=== PATIENT | female | born 1970 | race Caucasian/White ===

== ENCOUNTER 2016-07-01 23:24 | Emergency (ER) | payer MEDICARE ==
[~2016-07-01] VITALS: Ht 170.2 cm; Wt 89.7 kg
[~2016-07-01 23:24] MED LIST: ALBU0.832 INH; BECL8.7A5 AEROSOL; BUDE10.22 PO; FERR325T40 PO; GLIM2TAB3 PO; NITR0.4T SL; OMEP-29 PO; PROM25TA7 PO; TRAZ-58 PO; VYBRID PO
[2016-07-01 23:29] VITALS: Ht 170.2 cm; Wt 89.7 kg
--- OUTSIDE RECORDS SUMMARY | 2016-07-01 23:29 | XMS REPORT | Referral Summary ---
Author Author [facility] Organization [facility] Address Unknown Phone Unavailable Care Team Providers Care Skin Carver Name Role Phone CathyeugeniaAgatha Primary Care Physician [phone] Encounter BOB [id number] Date(s): 02/01/15 - 02/02/15 [facility] [address] [place] [address] [phone] Final: Other chest pain Final: Iron deficiency anemia, unspecified Final: Abnormal electrocardiogram [ECG] [EKG] Final: Type 2 diabetes mellitus without complications Final: Bradycardia, unspecified Final: Obesity, unspecified Final: Bipolar disorder, unspecified Final: Presence of cardiac pacemaker Final: Body mass index (BMI) 32.0-32.9, adult Discharge Disposition: 01-Home or Self Care Attending Physician: Ramana Ocampo MD Admitting Physician: Ramana Ocampo MD Vital Signs Most recent to 1 oldest [Reference Range]: Temperature Oral 37.1 degC [35.8-37.3 degC] (02/02/15 10:30 PM) Peripheral Pulse 75 bpm Rate [60-100 bpm] (02/02/15 10:30 PM) Heart Rate Monitored 65 bpm [60-100 bpm] (02/02/15 7:30 PM) Respiratory Rate 18 br/min [14-20 br/min] (02/02/15 10:30 PM) Blood Pressure 140/85 mmHg [90-140/60-90 mmHg] (02/02/15 10:30 PM) Mean Arterial 103 mmHg Pressure, Cuff (02/01/15 10:21 PM) SpO2 95 % (02/02/15 10:30 PM) Problem List Condition Effective Dates Status Health Status Informant Acute Active pain(Confirmed) Pacemaker(Confirmed) Active Obesity(Confirmed) Active patient Tissue perfusion Active alteration(Confirmed )1 1Problem added automatically by system based on initiation of Tissue Perfusion Cerebral Plan of Care Allergies, Adverse Reactions, Alerts Substance Reaction Severity Status metFORMIN Diarrhea Active minocycline Eczema (rash) Active Medications Amaryl 2 mg, Oral, Daily, 0 Refill(s) Start Date: 02/01/15 Status: Ordered ferrous sulfate 325 mg (65 mg elemental iron) oral delayed release tablet 325 mg 1 tabs, Oral, BIDWM, 0 Refill(s) Start Date: 02/02/15 Status: Ordered Nitrostat 0.4 mg, SubLingual, q5min, as needed for chest pain, not to exceed 3 doses/15 min--if pain persists, seek medical attention, 0 Refill(s) Start Date: 02/01/15 Status: Ordered PriLOSEC 20 mg oral delayed release capsule 20 mg 1 caps, Oral, Daily, # 90 caps, 0 Refill(s), other reason (Rx) Start Date: 02/02/15 Status: Ordered traZODone 100 mg, Oral, Bedtime (once a day), 0 Refill(s) Start Date: 02/01/15 Status: Ordered Viibryd 40 mg, Oral, Daily, 0 Refill(s) Start Date: 02/01/15 Status: Ordered Results Hematology Most recent to 1 oldest [Reference Range]: WBC [4.8-10.8 7.4 10*3/uL 10*3/uL] (02/01/15 8:14 PM) RBC [4.00-5.20] 4.43 (02/01/15 8:14 PM) Hgb [12.0-16.0 11.2 gm/dL gm/dL] *LOW* (02/01/15 8:14 PM) Hct [37.0-47.0 %] 34.8 % *LOW* (02/01/15 8:14 PM) MCV [82.0-99.0 fL] 78.6 fL *LOW* (02/01/15 8:14 PM) MCH [27.0-32.0 pg] 25.3 pg *LOW* (02/01/15 8:14 PM) MCHC [32.0-36.0 32.2 gm/dL gm/dL] (02/01/15 8:14 PM) RDW [11.5-14.5 %] 14.9 % *HI* (02/01/15 8:14 PM) Platelet [150-400 320 10*3/uL 10*3/uL] (02/01/15 8:14 PM) MPV [9.4-12.4 fL] 10.4 fL (02/01/15 8:14 PM) Immature 0.1 % Granulocytes (02/01/15 8:14 PM) [0.0-1.0 %] Neutrophils [51-75 55 % %] (02/01/15 8:14 PM) Lymphocytes [20-46 36 % %] (02/01/15 8:14 PM) Monocytes [4-11 %] 7 % (02/01/15 8:14 PM) Eosinophils [0-4 %] 2 % (02/01/15: PM) Basophils [0-2 %] 0 % (02/01/15 8: PM) Neutro Absolute 4.07 10*3 [1.90-7.00 10*3] (02/01/15 8:14 PM) Lymph Absolute 2.67 10*3 [0.80-3.30 10*3] (02/01/15 8:14 PM) Ness Absolute 0.49 10*3 [0.30-1.00 10*3] (02/01/15 8:14 PM) Eos Absolute 0.16 10*3 [0.00-0.50 10*3] (02/01/15 8:14 PM) Baso Absolute 0.03 10*3 [0.00-0.20 10*3] (02/01/15 8:14 PM) Chemistry Most recent to 1 oldest [Reference Range]: Sodium Lvl [136-144 137 mEq/L mEq/L] (02/01/15 8:14 PM) Potassium Lvl 3.6 mEq/L [3.6-5.1 mEq/L] (02/01/15 8:14 PM) Chloride [99-109 103 mEq/L mEq/L] (02/01/15 8:14 PM) CO2 [22-32 mEq/L] 25 mEq/L (02/01/15 8:14 PM) AGAP [3-20] 9 (02/01/15 8:14 PM) BUN [4-20 mg/dL] 9 mg/dL (02/01/15 8:14 PM) Glucose Lvl [70-100 116 mg/dL mg/dL] *HI* (02/01/15 8:14 PM) Creatinine Lvl 0.72 mg/dL [0.44-1.03 mg/dL] (02/01/15 8:14 PM) eGFR [>60] >60 1 (02/01/15 8:14 PM) Calcium Lvl 9.3 mg/dL [8.6-10.0 mg/dL] (02/01/15 8:14 PM) Albumin Lvl [3.5-4.8 3.9 gm/dL gm/dL] (02/01/15 8:14 PM) Total Protein 6.5 gm/dL [6.1-7.9 gm/dL] (02/01/15 8:14 PM) Globulin [1.9-4.3 2.6 gm/dL gm/dL] (02/01/15 8:14 PM) ALT [14-54 U/L] 36 U/L (02/01/15 8:14 PM) AST [15-41 U/L] 26 U/L (02/01/15 8:14 PM) Alk Phos [26-104 70 U/L U/L] (02/01/15 8:14 PM) Bili Total [0.2-1.2 0.3 mg/dL 2 mg/dL] (02/01/15 8:14 PM) Troponin [<0.06 <0.05 ng/mL ng/mL] (02/02/15 10:00 PM) Blood Glucose, 84 mg/dL Capillary [70-100 (02/02/15 6:18 PM) mg/dL] 1Result Comment: Multiply eGFR results by 1.21 for race. 2Result Comment: Naproxen, specifically the metabolite O-desmethylnaproxen, may cause spurious elevation in Total Bilirubin levels. Immunizations No data available for this section Procedures Procedure Date Related Diagnosis Body Site Catheterization Left Heart with Coronary 02/02/15 Angiography (Right, Wrist)1 1auto-populated from documented surgical case Social History Social History Type Response Smoking Status Never smoker Assessment and Plan No data available for this section
--- OUTSIDE RECORDS SUMMARY | 2016-07-01 23:29 | XMS REPORT | Continuity of Care Document ---
Author Author [facility] Organization [facility] Address Unknown Phone Unavailable Care Team Providers Care Banquet Supervisor Name Role Phone Darin Rader Primary Care Physician [phone] Source Comments Some departments are not documenting in the electronic medical record. If you do not see the information that you expected, contact Release of Information in the Health Information Management department at [phone] for further assistance in locating additional records.[facility] Active Allergies and Adverse Reactions Allergen Noted Date Severity Reactions Comments Biguanides 08/20/2014 Low UNKNOWN Metformin 08/20/2014 Low UNKNOWN Current Medications Prescription Sig. Disp. Refills Start End Date Status Date promethazine (PHENERGAN) Take 25 mg by mouth every Active 25 mg tablet 6 hours as needed for Nausea. traZODone (DESYREL) 100 Take 100 mg by mouth at Active mg tablet bedtime daily. budesonide/formoterol Inhale 2 Puffs by mouth Active (SYMBICORT) 160/4.5 mcg twice daily. HFAA inhalation nitroglycerin (NITROSTAT) Place 0.4 mg under tongue Active 0.4 mg tablet every 5 minutes as needed for Chest Pain. Mometasone-Formoterol Inhale by mouth. Active (DULERA) 100-5 mcg/actuation HFAA NAPROXEN SODIUM (ALEVE Take 220 mg by mouth as Active PO) Needed. OLANZapine (ZYPREXA) 5 mg Take 5 mg by mouth as Active tablet Needed. Active Problems No known active problems Social History Tobacco Use Types Packs/Day Years Used Date Never Smoker Last Filed Vital Signs Vital Sign Reading Time Taken Blood Pressure 158/96 08/27/2014 1:41 PM CDT Pulse 87 08/27/2014 1:41 PM CDT Temperature 37.3 C (99.1 F) 08/27/2014 1:41 PM CDT Respiratory Rate 18 08/27/2014 1:41 PM CDT Height 1.676 m (5' 5.98") 08/27/2014 1:41 PM CDT Weight 92.352 kg (203 lb 9.6 oz) 08/27/2014 1:41 PM CDT Body Mass Index 32.88 08/27/2014 1:41 PM CDT Oxygen Saturation 98% 08/27/2014 1:41 PM CDT Plan of Care Health Maintenance Due Date Last Done Comments Physical (Comprehensive) 1978 Exam Pertussis Vaccine 1982 Tetanus Vaccine 02/11/1988 Cervical Cancer Screening 02/11/1992 Breast Cancer Screening 2011 Influenza Vaccine 12/08/2016 Results from Last 3 Months Not on file
--- OUTSIDE RECORDS SUMMARY | 2016-07-01 23:29 | XMS REPORT ---
Author [facility] Organization Unknown Address Unknown Phone Unavailable Care Team Providers Care Rag Boiler Name Role Phone UNASSIGNED DOCTOR , DOCTOR PP [phone] Reason For Visit Reason for Visit from 09/26/2014 4:35 AM:* Pt Stated Reason for Adm : Depression with SI with plan Chief Complaint MOD Social History Social History from 09/30/2014 12:16 PM:* Tobacco Use? : Never Smoker Social History from 09/26/2014 4:35 AM:* Tobacco Use? : Never Smoker Functional Status Functional Status from 09/30/2014 9:10 AM:* LOC : Alert * Oriented To : Person,Place,Time,Event * Weight Bearing Status : Full * Assist Level : Independent * # Assists : Independent Functional Status from 09/29/2014 8:20 PM:* LOC : Alert * Oriented To : Person,Place,Time,Event * Weight Bearing Status : Full * Assist Level : Independent * # Assists : Independent Functional Status from 09/29/2014 9:45 AM:* LOC : Alert * Oriented To : Person,Place,Time,Event * Weight Bearing Status : Full * Assist Level : Independent * # Assists : Independent Functional Status from 09/28/2014 7:45 PM:* LOC : Alert * Oriented To : Person,Place,Time,Event * Weight Bearing Status : Full * Assist Level : Independent * # Assists : Independent Functional Status from 09/28/2014 10:00 AM:* LOC : Alert * Oriented To : Person,Place,Time,Event * Weight Bearing Status : Full * Assist Level : Independent * # Assists : Independent Functional Status from 09/27/2014 8:05 PM:* LOC : Alert * Oriented To : Person,Place,Time * Weight Bearing Status : Full * Assist Level : Independent * # Assists : Independent Functional Status from 09/27/2014 9:00 AM:* LOC : Alert * Oriented To : Person,Place,Time,Event * Weight Bearing Status : Full * Assist Level : Independent * # Assists : Independent Functional Status from 09/26/2014 9:01 PM:* LOC : Drowsy * Oriented To : Person,Place,Time * Weight Bearing Status : Full * Assist Level : Independent * # Assists : Independent Functional Status from 09/26/2014 9:00 AM:* LOC : Alert * Oriented To : Person,Place,Time,Event * Weight Bearing Status : Full * Assist Level : Independent * # Assists : Independent Functional Status from 09/26/2014 4:35 AM:* LOC : Alert * Oriented To : Person,Place,Time,Event * Weight Bearing Status : Full * Assist Level : Independent * # Assists : Independent Vital Signs Hospital Vital Signs from 09/30/2014 6:36 AM:* Weight : 89.8/ kg * Height : 5/7 ft,in * Temperature : 97.2 F * Pulse : 70 * Respirations : 18 * BP : 106/73 Hospital Vital Signs from 09/29/2014 5:45 AM:* Height : 5/7 ft,in * Temperature : 97.4 F * Pulse : 70 * Respirations : 16 * BP : 124/82 Hospital Vital Signs from 09/28/2014 7:16 AM:* Weight : 90.8/ kg * Height : 5/7 ft,in Hospital Vital Signs from 09/28/2014 5:46 AM:* Weight : 90.8/ kg * Height : 5/7 ft,in * Temperature : 97.6 F * Pulse : 70 * Respirations : 18 * BP : 118/82 Hospital Vital Signs from 09/27/2014 6:19 AM:* Height : 5/7 ft,in * Temperature : 97.2 F * Pulse : 74 * Respirations : 16 * BP : 115/83 Hospital Vital Signs from 09/26/2014 2:54 PM:* Height : 5/7 ft,in * Temperature : 98.7 F * Pulse : 83 * Respirations : 20 * BP : 110/82 Hospital Vital Signs from 09/26/2014 4:35 AM:* Weight : 92.3/ kg * Height : 5/7 ft,in Hospital Vital Signs from 09/26/2014 3:54 AM:* Weight : 92.3/ kg * Height : 5/7 ft,in * Temperature : 97.8 F * Pulse : 87 * Respirations : 18 * BP : 151/86 Results Chemistry from 09/28/2014 2:20 PMMAGNESIUM 2.1 MG/DL (1.8-2.4 MG/DL) Chemistry from 09/27/2014 6:30 AMGLUCOSE (FASTING) 129 MG/DL H (65-99 MG/DL) Problems Encounter Diagnosis * Anxiety Comment:Problem resolved by [facility] upon Discharge, Status: Resolved. * Fall Risk Comment:Problem resolved by [facility] upon Discharge, Status: Resolved. * Mood Disorder Comment:Problem resolved by [facility] upon Discharge, Status:Resolved. Encounters Encounter Diagnosis * Anxiety Comment:Problem resolved by [facility] upon Discharge, Status: Resolved. * Fall Risk Comment:Problem resolved by [facility] upon Discharge, Status: Resolved. * Mood Disorder Comment:Problem resolved by [facility] upon Discharge, Status:Resolved. Plan of Care Follow-up Appointments from 09/30/2014 12:16 PM:* #1 Office appointment: : Danae Angeles ([phone]) * #1 Date/Time : 10/01/2014 10:00 AM * Address # 1 : [place] * #2 Office appointment: : Adan Pete ([phone]) * #2 Date/Time : 10/05/2014 10:15 AM * Address # 2 : [place] Procedures No relevant procedures performed. Immunizations No immunizations administered or ordered. Hospital Course Hospital Discharge Instructions How to care for yourself at home from 09/30/2014 12:16 PM:* Discharge Activity : Activity as tolerated * Discharge Diet : As before hospitalization * Call your doctor if: : Fever over 101 F or severe chills,Chest pain or other unexplained symptoms,Tingling or numbness develops,A sudden increase or decrease in weight,You have persistent or worsening symptoms Allergies, Adverse Reactions, Alerts * Banana causes unspecified. * Banana (as Food allergen) causes unspecified. * Metformin causes unspecified. * Omnicef causes unspecified. * No Latex Allergy. * No IV Contrast Allergy. Medication It is the responsibility of the patient or patient account maintenance representative to confirm the list of medications with either the patient's personal care provider or the patient's follow-up care provider to ensure the patient has an appropriate list of medications to take at home. Discharge medications New medications* mirtazapine (Remeron) 15 mg Tablet, Ordered By: WILMER K KAYLAN, PAC Directions: 0.5 tablet oral daily at bedtime for depression Additional Instructions: #15 escribed to [facility] Changed medications* budesonide-formoterol (Symbicort) 80 mcg-4.5 mcg/Actuation HFA Aerosol Inhaler, Ordered By: DENIS FERREIRA Directions: 2 puff by inhalation twice a day asthma * vilazodone (Viibryd) 40 mg Tablet, Ordered By: DENIS FERREIRA Directions: 1 tablet oral daily with breakfast for depression Stopped medications* omeprazole 20 mg capsule,delayed release(DR/EC) Directions: 1 capsule oral daily before breakfast * traZODone 100 mg Tablet Directions: 1-3 tablets oral daily at bedtime * mometasone-formoterol (Dulera) 100 mcg-5 mcg/Actuation HFA Aerosol Inhaler Directions: 2 puff by inhalation twice a day * nitroglycerin (Nitrostat) 0.4 mg Tablet, Sublingual Directions: 1 tablet sublingual Max 3 tabs in 15 minutes PRN chest pain * OLANZapine 5 mg tablet,disintegrating Directions: 1 tablet oral daily PRN anxiety
--- OUTSIDE RECORDS SUMMARY | 2016-07-01 23:29 | XMS REPORT | Continuity of Care Document ---
Author Author [facility] Organization [facility] Address Unknown Phone Unavailable Allergies Active Description Code Type Severity Reaction Onset Reported/Identified Relationship to Patient Clinical Status Yes MINOCYCLINE Drug Allergy N/A N/A Yes NKDA N/A N/A Yes OMNICEF 06682 Drug Allergy N/A N/A Yes banana banana Drug Allergy Unknown N/A 04/09/2009 Yes cefdinir cefdinir Drug Allergy Unknown N/A 04/09/2009 Yes metformin metformin Drug Allergy Unknown N/A 04/09/2009 Yes metformin Drug Allergy N/A Diarrhea 04/17/2013 Yes Minocycline Drug Allergy N/A Eczema (rash) 04/17/2013 Yes No Known Allergies Drug Allergy N/A N/A 04/17/2013 Yes No Known Drug Allergies Drug Allergy N/A N/A 04/17/2013 Yes No Known Food Allergies Food Allergy N/A N/A 04/17/2013 Yes Omnicef Drug Allergy N/A Eczema (rash) 04/17/2013 Medications Problems Date Dx Coded Attending Type Code Diagnosis Diagnosed By 04/30/2012 Wil Vila MD Admitting 786.05 SHORTNESS OF BREATH 04/17/2013 Monika Addison MD Final 250.00 DM2/NOS UNCOMP NSU 04/17/2013 Monika Addison MD Final 272.4 HYPERLIPIDEMIA NEC NOS 04/17/2013 Monika Addison MD Final 309.81 POSTTRAUMATIC STRESS DIS 04/17/2013 Monika Addison MD Final 493.90 ASTHMA NOS 04/17/2013 Monika Addison MD Final 724.5 BACKACHE NOS 04/17/2013 Monika Addison MD Final 787.01 NAUSEA W VOMITING 04/17/2013 Monika Addison MD Final 790.6 ABN BLOOD CHEMISTRY NEC 04/17/2013 Monika Addison MD Final 922.31 CONTUSION OF BACK 04/17/2013 Monika Addison MD External E928.9 ACCIDENT NOS 04/17/2013 Monika Addison MD Final V45.01 CARD PACEMAKER IN SITU 04/17/2013 Monika Addison MD V71.89 OBS SUSPECT COND NEC Procedures Results Encounters ACCT No. Visit Date/Time Discharge Status Pt. Type Provider Facility Loc./Unit Complaint [id number] 04/17/2013 13:47:00 2013 15:43:00 DIS Outpatient Monika Addison MD [facility] F4SE [id number] 04/30/2012 12:00:00 2012 23:59:59 CLS Outpatient Cadence MEJIA, Wil Rocha [facility] FO
--- OUTSIDE RECORDS SUMMARY | 2016-07-01 23:29 | XMS REPORT | Continuity of Care Document ---
Author Author [facility] Organization [facility] Address Unknown Phone Unavailable Allergies Active Description Code Type Severity Reaction Onset Reported/Identified Relationship to Patient Clinical Status Yes MINOCYCLINE Drug Allergy N/A N/A Yes NKDA N/A N/A Yes OMNICEF 62872 Drug Allergy N/A N/A Yes banana banana [...] Status Pt. Type Provider Facility Loc./Unit Complaint [id number] 04/17/2013 13:47:00 2013 15:43:00 DIS Outpatient Monika Addison MD [facility] F4SE [id number] 04/30/2012 12:00:00 2012 23:59:59 CLS Outpatient Cadence MEJIA, Wil Rocha [facility] FO
--- OUTSIDE RECORDS SUMMARY | 2016-07-01 23:30 | XMS REPORT | Referral Summary ---
Author Author [facility] Organization [facility] Address Unknown Phone Unavailable Care Team Providers Care Receivable Executive Name Role Phone CathyeugeniaAgatha Primary Care Physician [phone] Encounter VC ROJAS [id number] Date(s): 02/01/15 - 02/02/15 [facility] [address] [place] [address] Discharge Disposition: 01-Home or Self Care Attending [...] 8:14 PM) Eosinophils [0-4 %] 2 % (02/01/15 8:14 PM) Basophils [0-2 %] 0 % (02/01/15 8: PM) Neutro Absolute 4.07 10*3 [1.90-7.00 10*3] (02/01/15 8:14 PM) Lymph Absolute 2.67 10*3 [0.80-3.30 10*3] (02/01/15 8:14 PM) Brule Absolute 0.49 10*3 [0.30-1.00 10*3] (02/01/15 8:14 PM) Eos Absolute 0.16 10*3 [0.00-0.50 10*3] (02/01/15 8:14 PM) Baso Absolute 0.03 10*3 [0.00-0.20 10*3] (02/01/15 8:14 PM) Chemistry Most recent to 1 oldest [Reference Range]: Sodium Lvl [136-144 137 mEq/L mEq/L] (02/01/15 8: PM) Potassium Lvl 3.6 mEq/L [3.6-5.1 mEq/L] (02/01/15 8:14 PM) Chloride [99-109 103 mEq/L mEq/L] (02/01/15 8: PM) CO2 [22-32 mEq/L] 25 mEq/L (02/01/15 8: PM) AGAP [3-20] 9 (02/01/15 8:14 PM) BUN [4-20 mg/dL] 9 mg/dL (02/01/15 8: PM) Glucose Lvl [70-100 116 mg/dL mg/dL] [...]
--- NOTE | 2016-07-01 23:44 | ERPDOC ---
Departure Disposition Decision Date: Jul 02, 2016 Disposition Decision Time: 00:39 Disposition: 01 DISCHARGED HOME, SELF-CARE Impression Impression Impression: Primary Impression: Migraine Qualified Codes: G43.009 - Migraine without aura, not intractable, without status migrainosus Severity: Moderate Condition: Stable Seen By: Physician only Referrals: BONG FOX MD (Family) Follow-up for evaluation Patient Instructions: Migraine Headache (ED) Problems/Meds/Labs Reviewed?: Yes Medications reviewed and manag: Yes Follow up care ordered?: Yes Mental Status: Alert, Oriented HPI - Headache General Chief Complaint: Headache Stated Complaint: HEADACHE Time Seen by Provider: 23:42 Source: patient Exam Limitations: no limitations HPI - Headache Initial Comments Patient is a 46-year-old female, presents emergent for further evaluation of headache for the past 10 days. Patient states she's had a chronic migraine since last August, is currently getting enough Momberg together to get Botox which she has been approved for. Patient states this headache is lasted 10 days, left side anterior which is where her normal headaches occur, this is worse than normal however not different than normal besides that. Patient's had mild nausea no vomiting patient decided tonight to present to the ER for evaluation. Occurred At: home Onset: Constant Duration: other (10 days) Severity/Quality: sharp, stabbing Location: frontal (left) Prior Headaches/Recent Trauma: no recent headache/trauma Modifying Factors: No: exposure to light Associated Symptoms: nausea/vomiting, DENIES: seizures, sinus infection, stiff neck, vision changes Hx of Similar Symptoms: Yes Allergies: Coded Allergies: minocycline (Verified Allergy, Intermediate, rash, 07/01/16) banana (Verified Allergy, Unknown, 07/01/16) cefdinir (Verified Allergy, Unknown, 07/01/16) metformin (Verified Adverse Reaction, Unknown, DIARRHEA, 07/01/16) Past History Past Medical History Metabolic: diabetes, hypercholesterolemia, hypertension Respiratory: asthma GI: GERD, gallbladder disease Neurological: TIA, migraines Musculoskeletal: back pain Psychological: OD, bipolar, depression, other, suicide attempt Surgical History General: EGD, appendix, colonoscopy, gallbladder, other Cardiac: cardiac cath, pacemaker Reproductive/: hysterectomy Joint: carpal tunnel, other Family History Family PMH: FOUND: [place], diabetes Vaccines Hx Influenza Vaccination: Yes (MAY 2014) Hx Pneumococcal Vaccination: Yes (2012) Review of Systems Constitutional Constitutional: DENIES: appetite decrease, chills, dizziness, fever, weakness Eyes Vision: blurring, DENIES: double vision, loss of visual martin ENMT Sinuses: DENIES: congestion, rhinorrhea Mouth/Throat: DENIES: scratchy throat, sore throat Cardiovascular Cardiac: DENIES: chest pain, dyspnea on exertion Pulmonary Respiratory: DENIES: cough, dyspnea, sputum, tachypnea GI Upper Abdomen: DENIES: nausea, pain, vomiting Lower Abdomen: DENIES: constipation, diarrhea, pain General: DENIES: frequency, urgency Musculoskeletal General: DENIES: cramps, pain, weakness Integumentary Skin: DENIES: color change, itching, rash Neurological General: headache, DENIES: change in strength, numbness, weakness Endocrine Endocrine: DENIES: heat/cold intolerance Hematologic/Lymphatic Hematologic/Lymphatic: DENIES: anemia, easy bruising Physical Exam General General Nourishment: well nourished, well developed General Body Habitus: well groomed Vitals and Pain First Documented Vital Signs Date Time Temp Pulse Resp B/P Pulse Ox O2 Delivery O2 Flow Rate FiO2 07/01/16 23:29 98.3 85 16 134/66 98 Room Air Weight: Kilograms: Height (feet): 5 Height (inches): 7 Triage Pain Scale: RN VS reviewed by Provider: Yes Eyes (brief) Eyes Brief: found: EOMI, PERRL ENMT (brief) ENMT Brief: FOUND: TM clear, TM good light reflex, ear canals clear, mucosa moist, normal dentition, NOT FOUND: nasal erythema, nasal exudate, nasal swelling, pharnyx erythema, tonsillar deviation Neck (brief) Neck: NOT FOUND: adenopathy, spasm, tenderness Respiratory (brief) Respiratory: FOUND: clear all martin, equal bilaterally, NOT FOUND: rales, wheezes Cardiovascular (brief) Cardiac: FOUND: regular rate, regular rhythm Capillary Refill: <2 sec Abdomen (brief) Abdominal Brief: FOUND: bowel normo active x4, soft, NOT FOUND: tender Lymphatic (brief) Lymphatic Brief: NOT FOUND: adenopathy Musculoskeletal (brief) Musculoskeletal Brief: NOT FOUND: spasm, tenderness Integumentary (brief) Integumentary Brief: FOUND: dry, pink, warm, NOT FOUND: rash Neurologic (brief) Neurological Brief: FOUND: CN w/o gross def to obs, motor-no gross deficits, sensory-no gross deficits Psychiatric (brief) Psychiatric Brief: FOUND: alert, oriented Differential Diagnoses Considering: Cerebral Hemorrhage, Cervical Strain, Headache, Headache - Migraine, Headache - Tension/Muscle Progress Results/Orders Orders Procedure Category Date Status Time Ketorolac (Toradol) PHA 07/02/16 Complete 00:00 Orphenadrine (Norflex) PHA 07/02/16 Complete 00:00 Promethazine PHA 07/02/16 Complete (Phenergan) 00:00 Hydromorphone PHA 07/02/16 Complete (Dilaudid) 01:30 Medications Current ED Medications Ketorolac Tromethamine (Toradol) 60 mg O ONCE IM Last administered on 00:27; Start 07/02/16 at 00:00; Stop 07/02/16 at 00:01; Status DC Orphenadrine Citrate (Norflex) 60 mg O ONCE IM Last administered on 07/02/16 00:29; Start 07/02/16 at 00:00; Stop 07/02/16 at 00:01; Status DC Promethazine HCl (Phenergan) 25 mg O ONCE IM Last administered on 07/02/16 00 :29; Start 07/02/16 at 00:00; Stop 07/02/16 at 00:01; Status DC Hydromorphone HCl (Dilaudid) 1 mg O ONCE IM Last administered on 07/02/16 01: 39; Start 07/02/16 at 01:30; Stop 07/02/16 at 01:31; Status DC MIKAYLA BAR MD Jul 01, 2016 23:44
[2016-07-02] MEDS ORDERED: KETOROLAC 60mg/2ml INJECTION IM ONE
[2016-07-02] MEDS ORDERED: ORPHENADRINE 60mg/2ml INJECTION IM ONE
[2016-07-02] MEDS ORDERED: PROMETHAZINE 25 MG INJECTION IM ONE
[2016-07-02] MEDS ORDERED: ATOR20TA59 PO (00:05)
[2016-07-02] MEDS ORDERED: BUTA1CAP53 PO (00:05)
[2016-07-02] MEDS ORDERED: SUMA100T PO (00:05)
[2016-07-02] MEDS ORDERED: SITA100T12 PO (00:05)
[2016-07-02] MEDS ORDERED: TOPI50TA57 PO ×2 (00:05)
[2016-07-02] MEDS ORDERED: HYDR-4009 PO (00:05)
--- NOTE | 2016-07-02 00:29 | NUR ---
[facility] PT HAS BEEN GIVEN NORFLEX, TORADOL AND PHENERGAN IM FOR HEADACHE AND NAUSEA OLIVER ALL INJECTIONS WELL
--- NOTE | 2016-07-02 01:15 | NUR ---
STATUS PT REPORTS HER NAUSEA IS BETTER STATES THE HEADACHE PAIN IS JUST A TINY BIT BETTER RATES JOAQUIN PAIN 7-11/16 DR BAR NOTIFIED
[2016-07-02] MEDS ORDERED: HYDROMORPHONE 2mg/ml INJECTION IM ONE (01:30)
--- NOTE | 2016-07-02 01:39 | NUR ---
MED DILAUDID GIVEN IM FOR PAIN PT OLIVER INJECTION WELL PT FRIEND AT BEDSIDE
--- OUTSIDE RECORDS SUMMARY | 2016-07-02 01:44 | XMS REPORT | Continuity of Care Document ---
Author Author [facility] Organization [facility] Address Unknown Phone Unavailable Allergies Active Description Code Type Severity Reaction Onset Reported/Identified Relationship to Patient Clinical Status Yes MINOCYCLINE Drug Allergy N/A N/A Yes NKDA N/A N/A Yes [id number] Drug Allergy N/A N/A Yes banana banana [...] Status Pt. Type Provider Facility Loc./Unit Complaint [id number] 04/17/2013 13:47:00 2013 15:43:00 DIS Outpatient Monika Addison MD [facility] F4SE [id number] 04/30/2012 12:00:00 2012 23:59:59 CLS Outpatient Cadence MEJIA, Wil Rocha [facility] FO
--- OUTSIDE RECORDS SUMMARY | 2016-07-02 01:44 | XMS REPORT | Continuity of Care Document ---
Author Author [facility] Organization [facility] Address Unknown Phone Unavailable Allergies Active Description Code Type Severity Reaction Onset Reported/Identified Relationship to Patient Clinical Status Yes MINOCYCLINE Drug Allergy N/A N/A Yes NKDA N/A N/A Yes OMNICEF [id number] Drug Allergy N/A N/A Yes banana banana [...] Status Pt. Type Provider Facility Loc./Unit Complaint [id number] 04/17/2013 13:47:00 2013 15:43:00 DIS Outpatient Monika Addison MD [facility] F4SE [id number] 04/30/2012 12:00:00 2012 23:59:59 CLS Outpatient Cadence MEJIA, Wil Rocha [facility] FO
--- OUTSIDE RECORDS SUMMARY | 2016-07-02 01:44 | XMS REPORT | Continuity of Care Document ---
Author Author [facility] Organization [facility] Address Unknown Phone Unavailable Care Team Providers Care Movement Assembly Final Inspector Name Role Phone Darin Rader Primary Care Physician [phone] Source Comments Some departments are not documenting in the electronic medical record. If you do not see the information that you expected, contact Release of Information in the Health Information Management department at [phone] for further assistance in locating additional records.[facility] Active Allergies and Adverse Reactions Allergen Noted [...]
--- OUTSIDE RECORDS SUMMARY | 2016-07-02 01:44 | XMS REPORT ---
Author [facility] Organization Unknown Address Unknown Phone Unavailable Care Team Providers Care Services Mgr Name Role Phone UNASSIGNED DOCTOR , DOCTOR PP [phone] Reason For Visit Reason for Visit from [...] PM:* #1 Office appointment: : Danae Angeles ([phone]) * #1 Date/Time : 10/01/2014 10:00 AM * Address # 1 : [place] * #2 Office appointment: : Adan Pete ([phone]) * #2 Date/Time : 10/05/2014 10:15 AM * Address # 2 : [place] Procedures No relevant procedures performed. Immunizations No [...] the responsibility of the patient or patient car sales representative to confirm the list of medications [...]
--- NOTE | 2016-07-02 01:49 | NUR ---
STATUS PT REPORTS MEDICATION IS NOT HELPING THE HEADACHE PAIN YET, BUT SHE IS STARTING TO FEEL TINGLING AND FEELS READY TO GO HOME TO SLEEP. STATES SHE FEELS LIKE IT WILL HELP ENOUGH FOR HER TO REST.
--- NOTE | 2016-07-02 01:50 | NUR ---
INSTUCTIONS DISMISSAL INSTRUCTIONS GIVEN TO PT WILL GO HOME TO REST AND HAS ALREADY NOTIFIED EMPLOYER SHE WON'T BE IN THIS MORNING TO WORK. VERBALIZED UNDERSTANDING TO FOLLOW-UP WITH PCP OR NEUROLOGIST.
[2016-07-02 01:51] VITALS: BP 104/65; PULSE 72; RESP 16; TEMP 98.3; O2SAT 98
--- NOTE | 2016-07-02 01:51 | NUR ---
DISMISS PT DISMISSED AMBULATORY WITH FEMALE FRIEND
== END 2016-07-02 01:51 | disposition home or self-care (01) ==
LOC: ED 23:24
DX: G43.009 Migraine without aura, not intractable, without status migrainosus (principal); I10 Essential (primary) hypertension
CPT/HCPCS: 96372; 99283; J1170; J1885; J2360; J2550